=== PATIENT | female | born 1985 | race Caucasian/White ===

== ENCOUNTER 2018-03-01 13:38 | Emergency (ER) | payer SELFPAY ==
--- NOTE | 2018-03-01 13:46 | ER Report ---
History and Physical Time Seen By MD: 13:46 HPI/ROS 32-year-old otherwise healthy female presents to the emergency department with complaints of palpitations, tachypnea, transient generalized weakness all which started while she was at the [place] fishing and camping with her family. The symptoms have improved [place] the [place]. She has had similar episodes in the past. She has been worked up for thyroid disease and told by her primary care physician that she would like her to wear a Holter monitor however she has not done that as of yet. Her mom has a history of SVT which was treated with an ablation. She states that with her previous episodes she has checked her heart rate and she has not been tachycardic at the time. She has no PE risk factors. She states that she eats relatively well and exercises 4-5 times a week. She has never had syncope with exertion. No early cardiac deaths in her family. No fever chills. No other complaints. Remainder of the 14 system rev: Yes Allergies: Coded Allergies: No Known Drug Allergies (Unverified , 03/01/18) Home Meds Reported Medications [facility]-3/Dha/Epa/Fish Oil (Fish Oil 1,000 mg Softgel) 1,000 Mg (120 Mg-180 Mg) Capsule 03/01/18 Propranolol Hcl (PROPRANOLOL HCL) 10 Mg Tablet, 10 MG PO BID 03/01/18 Reviewed Nurses Notes: Yes Hx Smoking: No Smoking Status: Never Smoker Exposure to Second Hand Smoke?: No Hx Substance Use Disorder: No Hx Alcohol Use: No Constitutional Vital Sign - Last 24 Hours 03/01/18 03/01/18 03/01/18 03/01/18 13:44 13:45 14:00 14:15 Temp 98.4 Pulse 100 95 92 74 Resp 22 20 24 13 B/P (MAP) 133/87 124/84 (97) Pulse Ox 100 100 100 95 O2 Delivery Room Air 03/01/18 03/01/18 03/01/18 14:30 14:45 15:00 Pulse 65 67 77 Resp 22 18 20 B/P (MAP) 117/90 (99) 117/70 (86) Pulse Ox 98 96 98 Intake and Output 03/01/18 03/01/18 03/02/18 14:59 22:59 06:59 Intake Total 1000 ml Balance 1000 ml Physical Exam General Appearance: The patient is alert, has no immediate need for airway protection and no current signs of toxicity. She appears anxious and is tearful at times Eyes: Pupils equal and round no injection. Respiratory: Chest is non tender, lungs are clear to auscultation. Cardiac: regular rate and rhythm, no murmurs Gastrointestinal: Abdomen is soft and non tender, no masses, bowel sounds normal. Extremities have full range of motion and are non tender. Skin: No rashes or lesions. DIFFERENTIAL DIAGNOSIS: After history and physical exam differential diagnosis was considered for cardiac dysrhythmia, ischemia, PE, infection, altitude sickness, panic attack Medical Decision Making Data Points Result Diagram: 03/01/18 1418 03/01/18 1418 Laboratory Hematology Test 03/01/18 14:15 03/01/18 14:18 Urine Color Straw Urine Clarity Clear Urine pH 7.0 pH (4.8-9.5) Urine Specific [place] 1.005 Urine Protein Negative mg/dL (NEGATIVE) Urine Glucose (UA) Negative mg/dL (NEGATIVE) Urine Ketones Negative mg/dL (NEGATIVE) Urine Blood Negative (NEGATIVE) Urine Nitrite Negative (NEGATIVE) Urine Bilirubin Negative (NEGATIVE) Urine Urobilinogen Negative mg/dL (0.2-1.9) Urine Leukocyte Esterase Negative (NEGATIVE) Urine RBC None /HPF (0-2/HPF) Urine WBC None /HPF (0-5/HPF) Urine Squamous Epithelial Cells Many /LPF (</=FEW) Urine Bacteria Few /HPF (NONE-FEW) Urine Mucus None /HPF (NONE-FEW) Urine HCG, Qualitative Negative (NEGATIVE) Red Blood Count 4.72 M/uL (4.17-5.56) Mean Corpuscular Volume 83.1 fL (80.0-96.0) Mean Corpuscular Hemoglobin 28.5 pg (26.0-33.0) Mean Corpuscular Hemoglobin Concent 34.3 g/dL (32.0-36.0) Red Cell Distribution Width 15.1 % (11.5-14.5) Mean Platelet Volume 8.7 fL (7.2-11.1) Neutrophils (%) (Auto) 74.5 % (39.4-72.5) Lymphocytes (%) (Auto) 18.7 % (17.6-49.6) Monocytes (%) (Auto) 6.2 % (4.1-12.4) Eosinophils (%) (Auto) 0.1 % (0.4-6.7) Basophils (%) (Auto) 0.5 % (0.3-1.4) Nucleated RBC Relative Count (auto) 0.1 /100WBC Neutrophils # (Auto) 5.8 K/uL (2.0-7.4) Lymphocytes # (Auto) 1.4 K/uL (1.3-3.6) Monocytes # (Auto) 0.5 K/uL (0.3-1.0) Eosinophils # (Auto) 0.0 K/uL (0.0-0.5) Basophils # (Auto) 0.0 K/uL (0.0-0.1) Nucleated RBC Absolute Count (auto) 0.01 K/uL Sodium Level 137 mmol/L (137-145) Potassium Level 3.0 mmol/L (3.5-5.0) Chloride Level 103 mmol/L (98-107) Carbon Dioxide Level 22 mmol/L (22-31) Blood Urea Nitrogen 10 mg/dl (7-18) Creatinine 0.70 mg/dl (0.52-1.04) Glomerular Filtration Rate Calc > 60.0 Random Glucose 88 mg/dl (75-110) Calcium Level 9.0 mg/dl (8.4-10.2) Total Bilirubin 1.0 mg/dl (0.2-1.3) Aspartate Amino Transf (AST/SGOT) 27 U/L (0-35) Alanine Aminotransferase (ALT/SGPT) 21 U/L (0-56) Alkaline Phosphatase 61 U/L (0-126) Total Protein 8.0 g/dl (6.3-8.2) Albumin 4.7 g/dl (3.5-5.0) Chemistry Test 03/01/18 14:15 03/01/18 14:18 Urine Color Straw Urine Clarity Clear Urine pH 7.0 pH (4.8-9.5) Urine Specific [place] 1.005 Urine Protein Negative mg/dL (NEGATIVE) Urine Glucose (UA) Negative mg/dL (NEGATIVE) Urine Ketones Negative mg/dL (NEGATIVE) Urine Blood Negative (NEGATIVE) Urine Nitrite Negative (NEGATIVE) Urine Bilirubin Negative (NEGATIVE) Urine Urobilinogen Negative mg/dL (0.2-1.9) Urine Leukocyte Esterase Negative (NEGATIVE) Urine RBC None /HPF (0-2/HPF) Urine WBC None /HPF (0-5/HPF) Urine Squamous Epithelial Cells Many /LPF (</=FEW) Urine Bacteria Few /HPF (NONE-FEW) Urine Mucus None /HPF (NONE-FEW) Urine HCG, Qualitative Negative (NEGATIVE) White Blood Count 7.7 k/uL (4.5-11.0) Red Blood Count 4.72 M/uL (4.17-5.56) Hemoglobin 13.5 g/dL (12.0-16.0) Hematocrit 39.2 % (34.0-47.0) Mean Corpuscular Volume 83.1 fL (80.0-96.0) Mean Corpuscular Hemoglobin 28.5 pg (26.0-33.0) Mean Corpuscular Hemoglobin Concent 34.3 g/dL (32.0-36.0) Red Cell Distribution Width 15.1 % (11.5-14.5) Platelet Count 222 K/uL (150-450) Mean Platelet Volume 8.7 fL (7.2-11.1) Neutrophils (%) (Auto) 74.5 % (39.4-72.5) Lymphocytes (%) (Auto) 18.7 % (17.6-49.6) Monocytes (%) (Auto) 6.2 % (4.1-12.4) Eosinophils (%) (Auto) 0.1 % (0.4-6.7) Basophils (%) (Auto) 0.5 % (0.3-1.4) Nucleated RBC Relative Count (auto) 0.1 /100WBC Neutrophils # (Auto) 5.8 K/uL (2.0-7.4) Lymphocytes # (Auto) 1.4 K/uL (1.3-3.6) Monocytes # (Auto) 0.5 K/uL (0.3-1.0) Eosinophils # (Auto) 0.0 K/uL (0.0-0.5) Basophils # (Auto) 0.0 K/uL (0.0-0.1) Nucleated RBC Absolute Count (auto) 0.01 K/uL Glomerular Filtration Rate Calc > 60.0 Calcium Level 9.0 mg/dl (8.4-10.2) Total Bilirubin 1.0 mg/dl (0.2-1.3) Aspartate Amino Transf (AST/SGOT) 27 U/L (0-35) Alanine Aminotransferase (ALT/SGPT) 21 U/L (0-56) Alkaline Phosphatase 61 U/L (0-126) Total Protein 8.0 g/dl (6.3-8.2) Albumin 4.7 g/dl (3.5-5.0) Urinalysis Test 03/01/18 14:15 Urine Color Straw Urine Clarity Clear Urine pH 7.0 pH (4.8-9.5) Urine Specific [place] 1.005 Urine Protein Negative mg/dL (NEGATIVE) Urine Glucose (UA) Negative mg/dL (NEGATIVE) Urine Ketones Negative mg/dL (NEGATIVE) Urine Blood Negative (NEGATIVE) Urine Nitrite Negative (NEGATIVE) Urine Bilirubin Negative (NEGATIVE) Urine Urobilinogen Negative mg/dL (0.2-1.9) Urine Leukocyte Esterase Negative (NEGATIVE) Urine RBC None /HPF (0-2/HPF) Urine WBC None /HPF (0-5/HPF) Urine Squamous Epithelial Cells Many /LPF (</=FEW) Urine Bacteria Few /HPF (NONE-FEW) Urine Mucus None /HPF (NONE-FEW) Urine HCG, Qualitative Negative (NEGATIVE) EKG/Imaging EKG Interpretation 12 lead EKG: Rhythm: normal sinus rhythm [place]: normal QRS: normal ST segments: normal ED Course/Re-evaluation ED Course Otherwise healthy 32-year-old female presents to the emergency department with feeling of acute weakness shortness of breath dyspnea and palpitations all while [place] altitude with her [place] fishing. Her symptoms did improve with distant , however she has had similar symptoms in the past. She was told to take propanolol. She is currently not taking propanolol. She also admits to having a history of anxiety and panic attacks. Her EKG shows no signs of WPW, Brugada, LVH, or prolonged QT. This is not consistent with a PE. Could be exacerbated by altitude. I counseled her that she should follow-up with a junior mechanical engineer when back in [place] for an echocardiogram and a Holter monitor. She was hypokalemic and was given potassium by mouth. She is stable for discharge at this time and will follow up with her primary care physician in [place] this week. Decision to Disposition Date: Mar 01, 2018 Decision to Disposition Time: 16:56 Depart Departure Latest Vital Signs Vital Signs Date Time Temp Pulse Resp B/P (MAP) Pulse Ox O2 Delivery O2 Flow Rate FiO2 03/01/18 15:00 77 20 117/70 (86) 98 03/01/18 13:44 98.4 Room Air Impression: Primary Impression: Heart palpitations Additional Impression: Hypokalemia Condition: Improved Disposition: HOME OR SELF-CARE Patient Instructions: Hypokalemia (ED), Palpitations (ED) Problem Qualifiers GLO BROOKS MD Mar 01, 2018 13:46
[2018-03-01] MEDS ORDERED: PROP10TA58 PO (13:50)
[2018-03-01] MEDS ORDERED: OMEG10007 (13:50)
[2018-03-01] MEDS ORDERED: NS(*) 0.9% 1000 ML BAG 1,000 ML IV ONE (14:20)
--- NOTE | 2018-03-01 14:33 | EKG ---
FACILITY: [facility] PATIENT NAME: JAY JONAS : [id number] MR: [id number] V: [id number] EXAM DATE: ORDERING PHYSICIAN: GLO BROOKS TECHNOLOGIST: Test Reason : Blood Pressure : / mmHG Vent. Rate : 101 BPM Atrial Rate : 101 BPM P-R Int : 156 ms QRS Dur : 084 ms QT Int : 392 ms P-R-T Axes : 058 078 -40 degrees QTc Int : 508 ms Sinus tachycardia Nonspecific ST and T wave abnormality Abnormal ECG No previous ECGs available Confirmed by BETITO REYNA ([id number]) on 03/02/2018 5:56:16 AM Referred By: Confirmed By:BETITO REYNA
[2018-03-01 14:38] LABS: PLATELET COUNT, AUTOMATED 222 K/uL (150-450)
[2018-03-01] MEDS ORDERED: POTASSIUM CHL 20 MEQ TABCR PO STA (16:12)
[2018-03-01 16:30] VITALS: BP 107/87
--- NOTE | 2018-03-01 17:56 | EKG ---
FACILITY: [facility] [place] PATIENT NAME: JAY JONAS : [id number] MR: [id number] V: [id number] EXAM DATE: ORDERING PHYSICIAN: GLO BROOKS TECHNOLOGIST: MARLIN Montoya Reason : REPEAT Blood Pressure : / mmHG Vent. Rate : 057 BPM Atrial Rate : 057 BPM P-R Int : 156 ms QRS Dur : 090 ms QT Int : 464 ms P-R-T Axes : 058 079 076 degrees QTc Int : 451 ms Sinus bradycardia with marked sinus arrhythmia Otherwise normal ECG Confirmed by BETITO REYNA ([id number]) on 03/02/2018 5:54:08 AM Referred By: CECILIA Confirmed By:BETITO REYNA
== END 2018-03-01 17:05 | disposition home or self-care (01) ==
LOC: ER 13:46
DX: R00.2 Palpitations (principal); E87.6 Hypokalemia; R94.31 Abnormal electrocardiogram [ECG] [EKG]
CPT/HCPCS: 81001; 81025; 84439; 84443; 85025; 93005; 96360; 96361; 99284; J7030; 82040; 82247; 82310; 82374; 82435; 82565; 82947; 84075; 84132; 84155; 84295; 84450; 84460; 84520